=== PATIENT | male | born 1950 | race Caucasian/White ===

== ENCOUNTER → 2016-10-18 | Outpatient (CLI) | payer MEDICARE ==
[~2016-10-18] MED LIST: ASPI-504 PO; CALC-140 PO; CINN500C14 PO; DEXL60CA3 PO; FERR324T4 PO; GBPN300C PO; HCT25T PO; LORA10TA7 PO; LSNP10T PO; MELO7.5T PO; METF500T PO; MULT-593 PO; POTA99TA7 PO; RANI150C PO; SAW160CA2 PO; VITA1CAP PO
[2016-10-18 18:37] LABS: ALBUMIN 2.5 g/dL (3.4-5.0); ANION GAP 14.9 MEQ/L (3-15); CALCULATED IONIZED CALCIUM 5.6 mg/dL (3.8-4.6); TOTAL PROTEIN 4.8 g/dL (6.4-8.5)
[2016-10-18 18:47] LABS: MEAN CORPUSCULAR HEMOGLOBIN 28.4 PG (26.0-34.0); MEAN CORPUSCULAR HGB CONC 34.1 g/dL (31.0-37.0); MEAN CORPUSCULAR VOLUME 83 FL (80-100); MEAN PLATELET VOLUME 10.6 FL (6.0-9.5); PLATELET COUNT 222 10^3uL (150-450); WHITE BLOOD COUNT 17.93 10^3uL (4.0-11.0)
[2016-10-18 19:05] LABS: BAND NEUTROPHILS % 5 % (0-6); EOSINOPHILS % 1 % (0-4); LYMPHOCYTES # 1.4 #; MONOCYTES # 2.2 #; MONOCYTES % 13 % (3-11); RBC MORPH NORMAL (NORMAL); SEGMENTED NEUTROPHILS % 73 % (51-67); TOTAL CELLS COUNTED 100
== END ==
LOC: LAB 17:10
PROVIDERS: ATTEND Internal Medicine Hematology & Oncology
DX: R59.9 Enlarged lymph nodes, unspecified (principal)
CPT/HCPCS: 36415; 80053; 82306; 82330; 82397; 83970; 85007; 85027

== ENCOUNTER → 2016-10-24 | Outpatient (REF) | payer MEDICARE ==
[2016-10-24 15:15] LABS: MEAN CORPUSCULAR HEMOGLOBIN 28.2 PG (26.0-34.0); MEAN CORPUSCULAR HGB CONC 34.5 g/dL (31.0-37.0); MEAN CORPUSCULAR VOLUME 82 FL (80-100); WHITE BLOOD COUNT 22.76 10^3uL (4.0-11.0)
[2016-10-24 15:16] LABS: MEAN PLATELET VOLUME 11.1 FL (6.0-9.5); PLATELET COUNT 186 10^3uL (150-450)
[2016-10-24 15:17] LABS: BAND NEUTROPHILS % 3 % (0-6); EOSINOPHILS % 1 % (0-4); LYMPHOCYTES # 1.4 #; MONOCYTES # 1.5 #; MONOCYTES % 7 % (3-11); RBC MORPH NORMAL (NORMAL); SEGMENTED NEUTROPHILS % 83 % (51-67); TOTAL CELLS COUNTED 100
== END ==
LOC: LAB 14:58
PROVIDERS: ATTEND Internal Medicine
DX: E83.52 Hypercalcemia (principal); I10 Essential (primary) hypertension; E11.9 Type 2 diabetes mellitus without complications; M54.5 Low back pain
CPT/HCPCS: 85025

== ENCOUNTER 2016-10-25 10:34 | Outpatient (RCR) | payer MEDICARE | END 2017-01-23 | disposition home or self-care (01) | LOC: LAB 10:34 | PROVIDERS: ATTEND Internal Medicine Hematology & Oncology | DX: Z53.9 Procedure and treatment not carried out, unspecified reason (principal) ==

== ENCOUNTER → 2016-10-25 | Outpatient (CLI) | payer MEDICARE ==
[2016-10-25 11:11] LABS: ALBUMIN 2.6 g/dL (3.4-5.0); ANION GAP 16.8 MEQ/L (3-15); CALCULATED IONIZED CALCIUM 6.4 mg/dL (3.8-4.6); TOTAL PROTEIN 5.7 g/dL (6.4-8.5)
== END ==
LOC: LAB 10:41 → EDSTATUS 10:47 → LAB 10:48
PROVIDERS: ATTEND Internal Medicine
DX: E83.52 Hypercalcemia (principal); I10 Essential (primary) hypertension; E11.9 Type 2 diabetes mellitus without complications; M54.5 Low back pain
CPT/HCPCS: 36415; 80053; 83615